=== PATIENT | female | born 1995 | race Caucasian/White ===

== ENCOUNTER 2024-10-13 09:52 | Emergency (ER) | payer OTHER ==
[~2024-10-13] VITALS: Ht 172.7 cm; Wt 93.9 kg
[2024-10-13 10:01] VITALS: TEMP 98.5
[2024-10-13] MEDS ORDERED: CYCL5TAB PO (10:16)
[2024-10-13] MEDS ORDERED: KETOROLAC TROMETHAMINE INJ 30 MG/ML VIAL ONE (10:20)
[2024-10-13] MEDS ORDERED: CYCLOBENZAPRINE 10 MG TABLET ONE (10:20)
[2024-10-13] MEDS: CYCLOBENZAPRINE 10 MG TABLET PO ONE (10:27)
[2024-10-13] MEDS: KETOROLAC TROMETHAMINE INJ 30 MG/ML VIAL IM ONE (10:28)
[2024-10-13 10:35] VITALS: BP 102/58
[2024-10-13 10:40] VITALS: O2SAT 98
== END 2024-10-13 10:46 | disposition home or self-care (01) ==
LOC: ER 10:06
DX: S39.012A Strain of muscle, fascia and tendon of lower back, initial encounter (principal); X58.XXXA Exposure to other specified factors, initial encounter; Y93.9 Activity, unspecified; Y92.9 Unspecified place or not applicable; Y99.9 Unspecified external cause status
CPT/HCPCS: 99283; 96372; J1885

== ENCOUNTER 2024-11-21 19:50 | Emergency (ER) | payer OTHER ==
[~2024-11-21] VITALS: Ht 172.7 cm; Wt 86.2 kg
[~2024-11-21 19:50] MED LIST: CYCL5TAB PO
[2024-11-21] MEDS ORDERED: AMOX-430 PO (21:25)
[2024-11-21] MEDS ORDERED: PSEU-250 PO (21:25)
[2024-11-21] MEDS ORDERED: PSEUDOEPHEDRINE HCL 30 MG TABLET ONE (21:40)
[2024-11-21] MEDS ORDERED: AMOX/CLAVULANATE 875 MG TABLET ONE (21:41)
[2024-11-21] MEDS: AMOX/CLAVULANATE 875 MG TABLET PO ONE (21:45)
[2024-11-21] MEDS: PSEUDOEPHEDRINE HCL 30 MG TABLET PO ONE (21:45)
[2024-11-21 21:46] VITALS: BP 128/69; TEMP 98.6; O2SAT 99
== END 2024-11-21 21:46 | disposition home or self-care (01) ==
LOC: ER 20:02
DX: J32.9 Chronic sinusitis, unspecified (principal); R05.9 Cough, unspecified; R09.81 Nasal congestion; Z20.822 Contact with and (suspected) exposure to COVID-19
CPT/HCPCS: 71045-TC

== ENCOUNTER 2025-06-16 12:52 | Emergency (ER) | payer OTHER ==
[~2025-06-16] VITALS: Ht 170.2 cm; Wt 74.4 kg
[~2025-06-16 12:52] MED LIST changes: +AMOX-430 PO; +PSEU-250 PO
[2025-06-16 12:57] VITALS: TEMP 97.9
[2025-06-16] MEDS ORDERED: CYCL15CA23 PO (13:19)
[2025-06-16] MEDS ORDERED: KETOROLAC TROMETHAMINE 15 MG/ML VIAL ONE (13:25)
[2025-06-16] MEDS: KETOROLAC TROMETHAMINE 15 MG/ML VIAL IM ONE (13:34)
[2025-06-16 14:07] VITALS: BP 127/74; O2SAT 99
[2025-06-16 15:02] LABS: PREGNANCY TEST URINE QUAL NEGATIVE (NEGATIVE)
[2025-06-16 15:06] LABS: APPEARANCE,URINE CLEAR (CLEAR); BLOOD, URINE 3+ Ery/uL (NEGATIVE); LEUKOCYTE ESTERASE ,URINE 2+ (NEGATIVE); NITRITE, URINE NEGATIVE (NEGATIVE); UGLUCOSE NEGATIVE (NEGATIVE)
[2025-06-16 16:38] LABS: ADD URINE CULTURE YES
[2025-06-16 16:40] LABS: COARSE GRANULAR CASTS,URINE Moderate /LPF (None Seen); SQUAMOUS EPITHELIAL CELL,UR Moderate /HPF (None Seen)
[2025-06-17 11:11] LABS: RAPID PLASMA REAGIN QUAL. Non Reactive (Non Reactive)
[2025-06-17 15:32] LABS: HIV-1/2 ANTIBODY NON REACTIVE (NONREACTIVE)
[2025-06-18 20:07] LABS: CHLAMYDIA TRACHOMATIS NAA Negative (Negative); NEISSERIA GONORRHOEAE NAA Negative (Negative)
[2025-06-20] MEDS ORDERED: AMOX500C2 PO (10:09)
== END 2025-06-16 14:09 | disposition home or self-care (01) ==
LOC: ER 12:55
DX: S39.012A Strain of muscle, fascia and tendon of lower back, initial encounter (principal)
CPT/HCPCS: 99283; 86593; 86592; 96372; 87077; 87086; 81001; 36415; 87806; 87491; 87591; 84703 ×2; J1885